=== PATIENT | male | born 1945 | race Caucasian/White ===

== ENCOUNTER 2022-04-12 17:24 | Inpatient (IN) | payer MEDICARE ==
[~2022-04-12] VITALS: Ht 172.7 cm; Wt 79.6 kg
[2022-04-15] MEDS ORDERED: CEFPODOXIME PR200 MG PO (14:13)
--- NOTE | 2022-04-15 18:02 | EKG ---
[facility] [address] [facility] [place] [address] Signed Sinus rhythm with occasional premature ventricular complexes Left axis deviation Incomplete right bundle branch block Inferior infarct , age undetermined Abnormal ECG No previous ECGs available Confirmed by CLARITA BONILLA MD ([id number]) on 04/15/2022 6:02:16 PM Electronically Signed By: CLARITA BONILLA MD 04/15/221801 PATIENT NAME: NELYDORCAS Electrocardiogram DATE OF : 49 PHYSICIAN: CLARITA BONILLA MD REPORT #: [id number] REPORT IS CONFIDENTIAL AND NOT TO BE RELEASED WITHOUT AUTHORIZATION
== END 2022-04-15 17:07 | disposition home or self-care (01) | DRG 871 ==
LOC: ED 17:24 → CCU 20:00 → MS 20:00
PROVIDERS: ADMIT Internal Medicine; ATTEND Internal Medicine
DX: A41.50 Gram-negative sepsis, unspecified (principal); J15.6 Pneumonia due to other Gram-negative bacteria; J96.01 Acute respiratory failure with hypoxia; Z20.822 Contact with and (suspected) exposure to COVID-19; Z86.16 Personal history of COVID-19; D69.59 Other secondary thrombocytopenia; Z86.711 Personal history of pulmonary embolism
CPT/HCPCS: 36415; 71045; 80053; 81001; 83605; 85025; 85610; 85730; 87070; 87205; 87502; 93005; 93010; A9270; C9803; J0456; J0696; J1650; J7030; J7121; U0003

== ENCOUNTER 2022-10-16 16:55 | Emergency (ER) | payer MEDICARE, OTHER ==
[~2022-10-16] VITALS: Ht 172.7 cm; Wt 83.9 kg
[~2022-10-16 16:55] MED LIST: CEFPODOXIME PR200 MG PO
--- NOTE | 2022-10-16 22:11 | EKG ---
[facility] [address] [facility] [place] [address] Signed Sinus rhythm with premature atrial complexes Left axis deviation Right bundle branch block Abnormal ECG When compared with ECG of 12-APR-2022 18:11, premature ventricular complexes are no longer present premature atrial complexes are now present Right bundle branch block has replaced Incomplete right bundle branch block Confirmed by Marino Romero MD () on 10/16/2022 10:11:34 PM Electronically Signed By: MARINO ROMERO MD 10/16/222210 PATIENT NAME: DORCAS MCKAY Electrocardiogram DATE OF : 49 PHYSICIAN: MARINO ROMERO MD REPORT #: [id number] REPORT IS CONFIDENTIAL AND NOT TO BE RELEASED WITHOUT AUTHORIZATION
== END 2022-10-16 19:07 | disposition home or self-care (01) ==
LOC: ED 16:55
DX: J10.1 Influenza due to other identified influenza virus with other respiratory manifestations (principal); Z20.822 Contact with and (suspected) exposure to COVID-19
CPT/HCPCS: 36415; 71045; 80053; 81001; 83605; 85025; 87502; 93005; 93010; 99285-25; A9270; U0003